=== PATIENT | male | born 1970 | race Hispanic/Latino ===

== ENCOUNTER 2018-10-17 13:42 | Outpatient (CLI) | payer BC ==
--- NOTE | 2018-10-17 14:34 | RAD ---
PA AND LATERAL CHEST: History: Psoriatic arthritis. FINDINGS: Heart size is upper limits of normal. Mediastinal structures are unremarkable. The lungs are clear of infiltrates. Arthritic changes of the spine are noted. IMPRESSION: No active intrathoracic disease. POS: [facility]
== END 2018-10-17 13:43 | disposition home or self-care (01) ==
LOC: RAD 13:42
PROVIDERS: ATTEND Internal Medicine Rheumatology
DX: L40.50 Arthropathic psoriasis, unspecified (principal)
CPT/HCPCS: 71046